=== PATIENT | female | born 1940 | race Caucasian/White ===

== ENCOUNTER 2019-11-29 15:33 | Emergency (ER) | payer OTHER, MEDICAID ==
[~2019-11-29] VITALS: Ht 160 cm; Wt 104.3 kg
[~2019-11-29 15:33] MED LIST: BONIVA150 MG PO; CIPROFLOXACIN500 M1 PO; DICLOFENAC SODI75 M1 PO; PRINZIDE 20-121 EACH PO; ZOCOR 20 MG TAB20 M1 PO
[2019-11-29 15:45] VITALS: BP 136/80
[2019-11-29] MEDS ORDERED: ZESTRIL5 MG PO (15:48)
[2019-11-29] MEDS ORDERED: MELOXICAM7.5 MG PO (15:48)
[2019-11-29] MEDS ORDERED: ALENDRONATE SODI5 MG PO (15:48)
[2019-11-29] MEDS ORDERED: FLAX SEED OIL1000 MG PO (15:48)
[2019-11-29] MEDS ORDERED: FISH OIL 1,0001 EAC9 PO (15:48)
[2019-11-29] MEDS ORDERED: VITAMIN D310 MC1 PO (15:49)
[2019-11-29] MEDS ORDERED: ARICEPT10 M1 PO (15:49)
[2019-11-29] MEDS ORDERED: CELEXA 10 MG TA10 M1 PO (15:49)
[2019-11-29] MEDS ORDERED: TRIAMCINOLONE A80 G2 TOP (16:00)
[2019-11-29] MEDS ORDERED: PREDNISONE 10 M10 MG PO (16:00)
== END 2019-11-29 16:08 | disposition home or self-care (01) ==
LOC: M.ERS 15:33
DX: L25.9 Unspecified contact dermatitis, unspecified cause (principal); I10 Essential (primary) hypertension

== ENCOUNTER 2020-04-25 19:37 | Emergency (ER) | payer OTHER, MEDICAID ==
[~2020-04-25] VITALS: Ht 160 cm; Wt 100.8 kg
[~2020-04-25 19:37] MED LIST changes: +ALENDRONATE SODI5 MG PO; +ARICEPT10 M1 PO; +CELEXA 10 MG TA10 M1 PO; +FISH OIL 1,0001 EAC9 PO; +FLAX SEED OIL1000 MG PO; +MELOXICAM7.5 MG PO; +PREDNISONE 10 M10 MG PO; +TRIAMCINOLONE A80 G2 TOP; +VITAMIN D310 MC1 PO; +ZESTRIL5 MG PO
[2020-04-25] MEDS ORDERED: KEFLEX500 M1 PO (20:13)
[2020-04-25] MEDS ORDERED: ZOFRAN ODT4 MG PO (20:13)
[2020-04-25] MEDS ORDERED: BACTRIM DS TAB1 EACH PO (20:13)
[2020-04-25 20:20] VITALS: BP 120/78
== END 2020-04-25 20:22 | disposition home or self-care (01) ==
LOC: M.ERS 19:37
DX: L03.115 Cellulitis of right lower limb (principal); I10 Essential (primary) hypertension

== ENCOUNTER 2020-04-26 22:30 | Inpatient (IN) | payer OTHER, MEDICAID ==
[~2020-04-26] VITALS: Ht 160 cm; Wt 99.8 kg
[~2020-04-26 22:30] MED LIST changes: +BACTRIM DS TAB1 EACH PO; +KEFLEX500 M1 PO; +ZOFRAN ODT4 MG PO
[2020-04-26 22:40] VITALS: BP 143/69
[2020-04-26 23:11] LABS: ABSOLUTE EOSINOPHILS 0.2 thou/uL (0.0-0.7); ABSOLUTE LYMPHOCYTES 1.7 thou/uL (0.8-5.3); ABSOLUTE MONOCYTES 0.9 thou/uL (0.0-1.2); ABSOLUTE NEUTROPHILS 8.6 thou/uL (1.6-8.1); BASOPHILS 0.3 %; EOSINOPHILS 1.7 %; HEMATOCRIT 35.9 % (37.0-47.0); HEMOGLOBIN 11.8 gm/dL (12.0-15.0); LYMPHOCYTES 14.8 %; MCH 29.3 pg (26.0-34.0); MCHC 32.9 g/dL (28.0-37.0); MCV 89.1 fL (80.0-100.0); MONOCYTES 8.2 %; MPV 9.7 fl. (7.2-11.1); NUCLEATED RBCS 0 /100WBC; PLATELET COUNT* 195 thou/uL (150-400); RBC 4.03 mil/uL (4.20-5.00); RDW-CV 13.9 % (10.5-14.5); WBC 11.4 thou/uL (4.0-11.0)
[2020-04-26 23:30] LABS: CALCIUM 8.1 mg/dL (8.5-10.1); CREATININE 2.3 mg/dL (0.6-1.3); POTASSIUM 3.1 mmol/L (3.5-5.1)
[2020-04-26 23:34] LABS: MAGNESIUM 2.2 mg/dL (1.8-2.4); TOTAL BILIRUBIN 0.6 mg/dL (<0.1-1.0); TOTAL PROTEIN 7.1 g/dL (6.4-8.2)
[2020-04-27 01:05] VITALS: BP 130/61
[2020-04-27 01:30] VITALS: BP 109/53
[2020-04-27 07:00] VITALS: BP 122/47
--- NOTE | 2020-04-27 12:21 | EKG ---
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
[2020-04-27 14:17] LABS: URINE BILIRUBIN NEGATIVE (Negative); URINE BLOOD 3+ (Negative); URINE CLARITY CLEAR; URINE COLOR YELLOW; URINE GLUCOSE-RANDOM NEGATIVE (Negative); URINE KETONES NEGATIVE (Negative); URINE LEUKOCYTES-REFLEX NEGATIVE (Negative); URINE NITRITE-REFLEX NEGATIVE (Negative); URINE PROTEIN NEGATIVE (Negative); URINE SPECIFIC GRAVITY >= 1.030 (1.005-1.030); URINE UROBILINOGEN 0.2 E.U./dl (0.2-1.0)
[2020-04-27 14:23] LABS: SQUAMOUS >10 Many /LPF (0-3)
[2020-04-27 14:24] LABS: URINE RBC 0-2 Rare /HPF (0-2); URINE WBC-REFLEX None Seen /HPF (0-5)
[2020-04-27 14:25] LABS: CASTS None Seen /LPF (None Seen); CRYSTALS None Seen /LPF (None Seen); MUCUS None Seen strn/LPF (None Seen)
[2020-04-27 16:24] VITALS: BP 135/56
[2020-04-27 21:30] VITALS: BP 155/60
[2020-04-28 04:26] LABS: HEMATOCRIT 33.9 % (37.0-47.0); HEMOGLOBIN 11.2 gm/dL (12.0-15.0); MCH 29.5 pg (26.0-34.0); MCHC 33.1 g/dL (28.0-37.0); MCV 89.1 fL (80.0-100.0); MPV 9.3 fl. (7.2-11.1); RBC 3.8 mil/uL (4.20-5.00); RDW-CV 13.7 % (10.5-14.5); WBC 7.5 thou/uL (4.0-11.0)
[2020-04-28 04:44] LABS: CALCIUM 8.6 mg/dL (8.5-10.1); CREATININE 1.5 mg/dL (0.6-1.3); MAGNESIUM 2.4 mg/dL (1.8-2.4); POTASSIUM 3.8 mmol/L (3.5-5.1)
[2020-04-28 07:10] VITALS: BP 144/67
[2020-04-28 16:09] VITALS: BP 123/63
[2020-04-28 21:00] VITALS: BP 112/61
[2020-04-29 05:54] LABS: MAGNESIUM 2.1 mg/dL (1.8-2.4)
[2020-04-29 05:55] LABS: CREATININE 1.1 mg/dL (0.6-1.3); POTASSIUM 4.3 mmol/L (3.5-5.1)
[2020-04-29 08:00] VITALS: BP 138/69
[2020-04-29] MEDS ORDERED: CEFUROXIME500 MG PO (08:02)
[2020-04-29 13:35] VITALS: BP 138/69
[2020-04-29 14:10] VITALS: BP 138/69
== END 2020-04-29 14:00 | disposition home health service (06) | DRG 871 ==
LOC: M.ERS 22:30 → M.TBA-ER 04-27 00:26 → M.ORTHSURG 04-27 00:26
PROVIDERS: Emergency Medicine; Internal Medicine; ADMIT Family Medicine; ATTEND Family Medicine
DX: A41.9 Sepsis, unspecified organism (principal); N17.0 Acute kidney failure with tubular necrosis; L03.115 Cellulitis of right lower limb; E44.1 Mild protein-calorie malnutrition; E66.9 Obesity, unspecified; F03.90 Unspecified dementia, unspecified severity, without behavioral disturbance, psychotic disturbance, mood disturbance, and anxiety; I12.9 Hypertensive chronic kidney disease with stage 1 through stage 4 chronic kidney disease, or unspecified chronic kidney disease; E87.6 Hypokalemia; N18.30 Chronic kidney disease, stage 3 unspecified; Z20.822 Contact with and (suspected) exposure to COVID-19; Z79.899 Other long term (current) drug therapy; Z68.39 Body mass index [BMI] 39.0-39.9, adult

== ENCOUNTER 2020-08-20 20:56 | Emergency (ER) | payer OTHER, MEDICAID ==
[~2020-08-20] VITALS: Ht 157.5 cm; Wt 113.4 kg
[~2020-08-20 20:56] MED LIST changes: +CEFUROXIME500 MG PO
[2020-08-20] MEDS ORDERED: CENTANY30 GM TOP (21:42)
[2020-08-20] MEDS ORDERED: TRIAMCINOLONE A80 G2 TOP (21:42)
[2020-08-20] MEDS ORDERED: CEPHALEXIN500 MG PO (21:42)
[2020-08-20 21:58] VITALS: BP 125/53
== END 2020-08-20 21:59 | disposition home or self-care (01) ==
LOC: M.ERS 20:56
DX: R21 Rash and other nonspecific skin eruption (principal); L29.9 Pruritus, unspecified; I10 Essential (primary) hypertension; M81.0 Age-related osteoporosis without current pathological fracture; Z79.899 Other long term (current) drug therapy

== ENCOUNTER 2020-10-16 11:09 | Observation (INO) | payer OTHER, MEDICAID ==
[~2020-10-16] VITALS: Ht 160 cm; Wt 100.2 kg
[~2020-10-16 11:09] MED LIST changes: +CENTANY30 GM TOP; +CEPHALEXIN500 MG PO; +FLAX OIL1000 MG PO; -FLAX SEED OIL1000 MG PO
[2020-10-16 11:24] VITALS: BP 132/70
[2020-10-16 11:30] LABS: URINE BLOOD 3+ (Negative); URINE CLARITY CLEAR; URINE COLOR YELLOW; URINE GLUCOSE-RANDOM NEGATIVE (Negative); URINE KETONES NEGATIVE (Negative); URINE LEUKOCYTES-REFLEX NEGATIVE (Negative); URINE PROTEIN TRACE (Negative); URINE SPECIFIC GRAVITY >= 1.030 (1.005-1.030); URINE UROBILINOGEN 0.2 E.U./dl (0.2-1.0)
[2020-10-16 11:38] LABS: ICTOTEST (BILI CONFIRMATORY) Positive (Negative); URINE BILIRUBIN 2+ (Negative); URINE NITRITE-REFLEX POSITIVE (Negative)
[2020-10-16 11:39] LABS: HEMATOCRIT 38.7 % (37.0-47.0); HEMOGLOBIN 12.6 gm/dL (12.0-15.0); MCH 28.9 pg (26.0-34.0); MCHC 32.6 g/dL (28.0-37.0); MCV 88.8 fL (80.0-100.0); MPV 9.9 fl. (7.2-11.1); NUCLEATED RBCS 0 /100WBC; PLATELET COUNT* 192 thou/uL (150-400); RBC 4.36 mil/uL (4.20-5.00); RDW-CV 14.4 % (10.5-14.5); WBC 14.8 thou/uL (4.0-11.0)
[2020-10-16 11:47] LABS: HYALINE CASTS 0-3 Few /LPF (None Seen); MUCUS 0-3 Light strn/LPF (None Seen); SQUAMOUS 0-3 Few /LPF (0-3); URINE WBC-REFLEX 0-5 Rare /HPF (0-5)
[2020-10-16 11:48] LABS: CRYSTALS None Seen /LPF (None Seen)
[2020-10-16 11:59] LABS: ALBUMIN 3.6 g/dL (3.4-5.0); CALCIUM 8.6 mg/dL (8.5-10.1); CREATININE 1.6 mg/dL (0.6-1.3); POTASSIUM 3.8 mmol/L (3.5-5.1); TOTAL BILIRUBIN 0.9 mg/dL (<0.1-1.0); TOTAL PROTEIN 7.7 g/dL (6.4-8.2)
[2020-10-16 12:22] LABS: ABSOLUTE MONOCYTES 0.6 thou/uL (0.0-1.2); ABSOLUTE NEUTROPHILS 13.2 thou/uL (1.6-8.1); PLATELET ESTIMATE ADEQUATE
--- NOTE | 2020-10-16 14:27 | EKG ---
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
[2020-10-16 16:09] VITALS: BP 115/43
[2020-10-16 16:30] VITALS: BP 123/61
--- NOTE | 2020-10-16 19:08 | NUR ---
PT ADMITTED TO THE UNIT FROM THE ER FOR SEPSIS AND PYLEONEPHRITIS. PT IS ALERT AND ORIENTED, UP WITH SBA. PT IS OSAGE. WILL CONTINUE TO MONITOR PLAN OF CARE. VSS AFEBRILE.
[2020-10-16 19:54] VITALS: BP 105/42
[2020-10-17] VITALS: BP 112/51
[2020-10-17 03:56] LABS: ABSOLUTE EOSINOPHILS 0.2 thou/uL (0.0-0.7); ABSOLUTE LYMPHOCYTES 1.3 thou/uL (0.8-5.3); ABSOLUTE MONOCYTES 0.8 thou/uL (0.0-1.2); ABSOLUTE NEUTROPHILS 5.8 thou/uL (1.6-8.1); BASOPHILS 0.4 %; EOSINOPHILS 1.9 %; HEMATOCRIT 30.2 % (37.0-47.0); LYMPHOCYTES 15.6 %; MCH 29.8 pg (26.0-34.0); MCHC 33.3 g/dL (28.0-37.0); MCV 89.5 fL (80.0-100.0); MONOCYTES 10.4 %; MPV 10.4 fl. (7.2-11.1); NUCLEATED RBCS 0 /100WBC; PLATELET COUNT* 137 thou/uL (150-400); POLYS 71.7 %; RBC 3.37 mil/uL (4.20-5.00); RDW-CV 14.5 % (10.5-14.5)
[2020-10-17 04:00] VITALS: BP 112/52
[2020-10-17 04:08] LABS: CALCIUM 7.5 mg/dL (8.5-10.1); CREATININE 1.2 mg/dL (0.6-1.3); POTASSIUM 3.3 mmol/L (3.5-5.1)
--- NOTE | 2020-10-17 04:51 | NUR ---
PT ALERT AND ORIENTED, SOME FORGETFULNESS, HARD OF HEARING. ROOM AIR. MED SURG STATUS. SHE IS STANDBY ASSIST WITH WALKER AND GAIT BELT TO BATHROOM. FLUIDS ON ALL NIGHT, RECEIVED MEDS SCHEDULED. SLEPT WELL ALL SHIFT WITHOUT ANY REPORTS OF NAUSEA/VOMITING/PAIN. SOB ON EXERTION.
[2020-10-17 08:00] VITALS: BP 109/55
[2020-10-17 08:08] LABS: MAGNESIUM 1.5 mg/dL (1.8-2.4); PHOSPHORUS* 2.6 mg/dL (2.5-4.9)
[2020-10-17] MEDS ORDERED: CEFUROXIME500 MG PO (11:43)
[2020-10-17 12:04] VITALS: BP 111/46
[2020-10-17 13:11] VITALS: BP 111/46
--- NOTE | 2020-10-17 13:18 | NUR ---
PT DISCHARGED TO GO HOME WITH ALL BELONGINGS, ACCOMPANIED BY HER DAUGHTER. SALINE LOCK REMOVED HUB INTACT. PT DENIES PAIN AT DISCHARGE. PT HAS GOOD UNDERSTANDING OF DISCHARGE INSTRUCTIONS. PT DISCHARGED HOME.
== END 2020-10-17 13:40 | disposition home or self-care (01) ==
LOC: M.ERS 11:09 → M.TBA-ER 13:22 → M.2W 13:22
PROVIDERS: Physician Assistant; ADMIT Internal Medicine; ATTEND Internal Medicine
DX: N10 Acute pyelonephritis (principal); N17.9 Acute kidney failure, unspecified; Z20.822 Contact with and (suspected) exposure to COVID-19; R11.2 Nausea with vomiting, unspecified; E86.0 Dehydration; I12.9 Hypertensive chronic kidney disease with stage 1 through stage 4 chronic kidney disease, or unspecified chronic kidney disease; N18.9 Chronic kidney disease, unspecified; M81.0 Age-related osteoporosis without current pathological fracture; Z79.899 Other long term (current) drug therapy